=== PATIENT | male | born 1970 | race African-American/Black ===

== ENCOUNTER 2020-05-27 02:03 | Emergency (ER) | payer SELFPAY ==
[2020-05-27] MEDS ORDERED: ONDANSETRON 4 MG/2 ML VIAL ONE (02:54)
[2020-05-27] MEDS ORDERED: ASPIRIN 81 MG CHEWABLE TABLET ONE (02:54)
[2020-05-27 03:06] LABS: Protime INR 1.03
[2020-05-27 03:09] LABS: Absolute Lymphocytes (CBC) 1.4 K/uL (0.7-4.9); Basophils % 0.5 % (0-1.3); Hematocrit 43.1 % (39.6-49.0); Lymphocytes % 23.4 % (15.3-44.8); MPV 8.8 fL (7.6-11.3); RBC Red Blood Cell Count 4.84 M/uL (4.33-5.43)
[2020-05-27 03:24] LABS: Barbiturates NEGATIVE (NEGATIVE); Benzodiazepines NEGATIVE (NEGATIVE); Cocaine NEGATIVE (NEGATIVE); METHAMPHETAM POSITIVE (NEGATIVE); Methadone NEGATIVE (NEGATIVE); Opiates NEGATIVE (NEGATIVE); Phencyclidine NEGATIVE (NEGATIVE); THC Cannibis NEGATIVE (NEGATIVE)
[2020-05-27 03:25] LABS: ALT/SGPT 18 U/L (12-78); AST/SGOT 12 U/L (15-37); Albumin 3.8 g/dL (3.4-5.0); Alkaline Phosphatase 114 U/L (45-117); BUN Blood Urea Nitrogen 15 mg/dL (7-18); Bicarbonate 30 mmol/L (21-32); Bilirubin Direct < 0.1 mg/dL (0-0.2); Bilirubin Total 0.2 mg/dL (0.2-1.0); Glucose Level 98 mg/dL (74-106); Magnesium 2.4 mg/dL (1.8-2.4); NT PRO-BNP 46 pg/mL (<125); Protein, Total 8.1 g/dL (6.4-8.2); Sodium Level 139 mmol/L (136-145); Troponin (Emerg Dept Use Only) < 0.02 ng/mL (0.0-0.045)
[2020-05-27 03:39] LABS: Creatine Phosphokinase 184 U/L (39-308)
[2020-05-27] MEDS ORDERED: LORazepam 2 MG/ML VIAL ONE (03:43)
[2020-05-27] MEDS ORDERED: NA CHLORIDE 0.9% 1,000 ML ONE (03:43)
[2020-05-27 03:56] LABS: Urine Blood NEGATIVE (NEG); Urine Glucose NEGATIVE (NEG); Urine Protein TRACE (NEG); Urine Specific Gravity >1.030 (1.005-1.030)
[2020-05-27 04:55] LABS: Blood Morphology Comment NOT SEEN (NOT SEEN); Platelet Estimate ADEQ; White Blood Cell Scan OK (OK)
--- NOTE | 2020-05-27 06:14 | ER ---
Nurse's Notes [facility] Name: Danita Barbosa Age: 50 yrs Sex: Male : 1970 Arrival Date: 05/27/2020 Time: 02:06 Bed 6 Private MD: None, None Diagnosis: Chest pain, unspecified;Methamphetamine Abuse Presentation: 05/27 02:11 Acuity: LORENZO 3 sg 02:11 Chief complaint: Patient states: I have been having chest pain that began about a day sg ago, worsening tonight. 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 Denies any new injury or trauma at this time. States Chest pain is non radiating, described as sharp, denies N/V/D/Fever/Cough at this time. Coronavirus screen: Client denies travel out of the [place] in the last 14 days. At this time, the client does not indicate any symptoms associated with coronavirus-19. Ebola Screen: Patient negative for fever greater than or equal to 101.5 degrees Fahrenheit, and additional compatible Ebola Virus Disease symptoms Patient denies exposure to infectious person. Patient denies travel to an Ebola-affected area in the 21 days before illness onset. No symptoms or risks identified at this time. Initial Sepsis Screen: Does the patient meet any 2 criteria? HR > 90 bpm. No. Patient's initial sepsis screen is negative. Does the patient have a suspected source of infection? No. Patient's initial sepsis screen is negative. Risk Assessment: Do you want to hurt yourself or someone else? Patient reports no desire to harm self or others. Onset of symptoms was May 27, 2020. Care prior to arrival: None. Transition of care: patient was not received from another setting of care. 02:11 Method Of Arrival: Ambulatory sg Historical: - Allergies: 02:19 No Known Allergies; sg - Home Meds: 02:19 None [Active]; sg - PMHx: 02:19 None; sg - PSHx: 02:19 GI "several years ago"; sg - Immunization history:: Adult Immunizations not up to date. - Social history:: Smoking status: Patient reports the use of cigarette tobacco products, smokes one pack cigarettes per day. Patient uses alcohol, on a daily basis. Patient/guardian denies using street drugs, IV drugs. Screenin:46 Abuse screen: Denies threats or abuse. Denies injuries from another. Nutritional screening: No deficits noted. Tuberculosis screening: No symptoms or risk factors identified. Fall Risk None identified. Assessment: 02:45 General: Appears in no apparent distress. Behavior is calm, cooperative, appropriate wh for age. Pain: Complains of pain in chest Pain does not radiate. Pain currently is 5 out of 10 on a pain scale. Quality of pain is described as sharp, Pain began 2-3 days ago. Is episodic. Neuro: Level of Consciousness is awake, alert, obeys commands, Oriented to person, place, time, situation, Appropriate for age. Cardiovascular: Reports chest pain, Heart tones S1 S2 Rhythm is sinus tachycardia. Respiratory: Airway is patent Respiratory effort is even, unlabored, Respiratory pattern is regular, symmetrical, Breath sounds are clear bilaterally. GI: Abdomen is flat, non-distended. : No signs and/or symptoms were reported regarding the genitourinary system. EENT: No signs and/or symptoms were reported regarding the EENT system. Derm: Skin is intact, is healthy with good turgor, Skin is pink, warm \\T\\ dry. normal. Musculoskeletal: Circulation, motion, and sensation intact. 04:00 Reassessment: Patient appears in no apparent distress at this time. No changes from previously documented assessment. Patient and/or family updated on plan of care and expected duration. Pain level reassessed. Patient is alert, oriented x 3, equal unlabored respirations, skin warm/dry/pink. 05:15 Reassessment: Patient appears in no apparent distress at this time. Patient and/or family updated on plan of care and expected duration. Pain level reassessed. Patient is alert, oriented x 3, equal unlabored respirations, skin warm/dry/pink. 06:20 Reassessment: Patient appears in no apparent distress at this time. Patient and/or family updated on plan of care and expected duration. Pain level reassessed. Patient is alert, oriented x 3, equal unlabored respirations, skin warm/dry/pink. Vital Signs: 02:11 BP 141 / 102 LA Sitting (auto/reg); Pulse 100; Resp 18; Temp 97.7; Pulse Ox 100% on sg R/A; Weight 99.79 kg; Height 6 ft. 1 in. (185.42 cm); Pain 10/10; 04:00 BP 129 / 65; Pulse 84; Resp 18; Pulse Ox 99% on R/A; wh 05:15 BP 139 / 101; Pulse 81; Resp 18; Pulse Ox 95% on R/A; wh 06:15 BP 135 / 99; Pulse 83; Resp 18; Pulse Ox 98% ; 02:11 Body Mass Index 29.03 (99.79 kg, 185.42 cm) ED Course: 02:06 Patient arrived in ED. cl3 02:10 Dez Farias MD is Attending Physician. 7 02:11 Triage completed. sg 02:11 Arm band placed on. 02:20 None, None is Private Physician. 02:30 Inserted saline lock: 20 gauge in right antecubital area, using aseptic technique. wh Blood collected. Patient maintains SpO2 saturation greater than 95% on room air. 02:35 Ton So is Primary Nurse. 02:47 Patient has correct armband on for positive identification. Placed in gown. Bed in low wh position. Call light in reach. Side rails up X 1. 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 Pulse ox on. NIBP on. 03:13 XRAY Chest (1 view) In Process Unspecified. EDMS 03:13 Knee Left 3 View XRAY In Process Unspecified. EDMS 06:13 Scar Lerma MD is Referral Physician. [facility] 06:20 No provider procedures requiring assistance completed. IV discontinued, intact, wh bleeding controlled, No redness/swelling at site. Administered Medications: 02:43 Drug: Zofran (Ondansetron) 4 mg Route: IVP; Site: right antecubital; 02:58 Follow up: Response: No adverse reaction; Nausea is decreased 02:43 Drug: Aspirin Chewable Tablet 324 mg Route: PO; 02:59 Follow up: Response: No adverse reaction 03:34 Drug: Ativan 1 mg Route: IVP; Site: right antecubital; 05:27 Follow up: Response: No adverse reaction; RASS: Alert and Calm (0) 03:34 Drug: NS 0.9% 1000 ml Route: IV; Rate: 1 bolus; Site: right antecubital; 05:27 Follow up: Response: No adverse reaction; IV Status: Completed infusion Outcome: 06:13 Discharge ordered by . mh7 06:21 Discharged to home ambulatory. 06:21 Condition: stable 06:21 Discharge instructions given to patient, Instructed on discharge instructions, follow up and referral plans. POC Demonstrated understanding of instructions, follow-up care, POC 06:21 Patient left the ED. Signatures: Dispatcher [employer] Dominic Hopson RN RN sg Habalo, Winsy Maryjane Hernandez 3 Dez Farias MD MD mh7
--- NOTE | 2020-05-27 06:14 | EDPHYS ---
Physician Documentation [facility] Name: Danita Barbosa Age: 50 yrs Sex: Male : 1970 Arrival Date: 05/27/2020 Time: 02:06 Bed 6 Private MD: None, None ED Physician Dez Farias HPI: 05/27 02:55 This 50 yrs old Black Male presents to ER via Ambulatory with complaints of Chest Pain, mh7 Knee Pain - Left. 02:55 The patient or guardian reports chest pain that is located primarily in the anterior mh7 chest wall, bilaterally. Onset: 1 week(s) ago, and became worse 3 day(s) ago. The pain does not radiate. 02:56 Associated signs and symptoms: Pertinent positives: nausea, left anterior knee pain, mh7 Pertinent negatives: abdominal pain, cough, diaphoresis, dizziness, headache, lower extremity swelling, lightheadedness, near syncope, palpitations, recent travel, shortness of breath, syncope, vomiting. The chest pain is described as sharp. Duration: The patient or guardian reports multiple episodes, that are intermittent, that wax and wane. Modifying factors: The symptoms are alleviated by nothing. the symptoms are aggravated by nothing. Severity of pain: At its worst the pain was moderate yesterday, in the emergency department the pain has improved moderately. Patient reports chest pain for one week that worsened three days ago. Also complains of pain to his left anterior knee that he has had in the past but began again 2 days ago. He admits to drinking alcohol. He denies any fever, cough, abdominal pain, recent travel, or sick contacts.. Historical: - Allergies: 02:19 No Known Allergies; sg - Home Meds: 02:19 None [Active]; sg - PMHx: 02:19 None; sg - PSHx: 02:19 GI "several years ago"; sg - Immunization history:: Adult Immunizations not up to date. - Social history:: Smoking status: Patient reports the use of cigarette tobacco products, smokes one pack cigarettes per day. Patient uses alcohol, on a daily basis. Patient/guardian denies using street drugs, IV drugs. ROS: 02:56 Constitutional: Negative for fever, chills, and weight loss, Eyes: Negative for injury, mh7 pain, redness, and discharge, ENT: Negative for injury, pain, and discharge, Neck: Negative for injury, pain, and swelling, Respiratory: Negative for shortness of breath, cough, wheezing, and pleuritic chest pain, Back: Negative for injury and pain, : Negative for injury, bleeding, discharge, and swelling, Skin: Negative for injury, rash, and discoloration, Neuro: Negative for headache, weakness, numbness, tingling, and seizure, Psych: Negative for depression, anxiety, suicide ideation, homicidal ideation, and hallucinations, Allergy/Immunology: Negative for hives, rash, and allergies, Endocrine: Negative for neck swelling, polydipsia, polyuria, polyphagia, and marked weight changes, Hematologic/Lymphatic: Negative for swollen nodes, abnormal bleeding, and unusual bruising. Exam: 02:56 Head/Face: Normocephalic, atraumatic. Eyes: Pupils equal round and reactive to light, mh7 extra-ocular motions intact. Lids and lashes normal. Conjunctiva and sclera are non-icteric and not injected. Cornea within normal limits. Periorbital areas with no swelling, redness, or edema. Neck: Trachea midline, no thyromegaly or masses palpated, and no cervical lymphadenopathy. Supple, full range of motion without nuchal rigidity, or vertebral point tenderness. No Meningismus. Chest/axilla: Normal chest wall appearance and motion. Nontender with no deformity. No lesions are appreciated. 02:56 Respiratory: Lungs have equal breath sounds bilaterally, clear to auscultation and percussion. No rales, rhonchi or wheezes noted. No increased work of breathing, no retractions or nasal flaring. Abdomen/GI: Soft, non-tender, with normal bowel sounds. No distension or tympany. No guarding or rebound. No evidence of tenderness throughout. Back: No spinal tenderness. No costovertebral tenderness. Full range of motion. Skin: Warm, dry with normal turgor. Normal color with no rashes, no lesions, and no evidence of cellulitis. 02:56 Neuro: Awake and alert, GCS 15, oriented to person, place, time, and situation. Cranial nerves II-XII grossly intact. Motor strength 5/5 in all extremities. Sensory grossly intact. Cerebellar exam normal. Normal gait. 02:56 Constitutional: The patient appears in no acute distress, alert, awake, anxious. 02:56 Cardiovascular: Rate: tachycardic, Rhythm: regular, Pulses: no pulse deficits are appreciated, Heart sounds: normal, normal S1and S2, Edema: is not appreciated, JVD: is not appreciated. 02:56 Musculoskeletal/extremity: Extremities: noted in the left anterior knee: pain, tenderness, mild, ROM: intact in all extremities, Circulation is intact in all extremities. Pulses: are normal with no appreciated deficits, Perfusion: the patient is normally perfused throughout, Perfusion: the extremity is normally perfused throughout, Calf tenderness, is absent, Edema, is not appreciated, Sensation intact. Compartment Syndrome exam of affected extremity: is normal. no numbness, no tingling, no sensation deficit, no palor, no weak pulses, Joints: the left knee displays tenderness, mild, Weight bearing: Tendon exam: specific tendon testing normal through active and passive range of motion DVT Exam: no pain, no swelling, no tenderness, negative Homans' sign noted on exam, no appreciated bluish discoloration, no erythema, no increased warmth, Calves: are non-tender, have equal circumference. 02:56 Psych: Behavior/mood is cooperative, anxious, Affect is animated, Oriented to person, place, time, Patient has no thoughts/intents to harm self or others. Judgement / Insight is normal. Memory is normal. Delusions/hallucinations are not present. 06:19 ECG was reviewed by the Attending Physician. [facility] Vital Signs: 02:11 BP 141 / 102 LA Sitting (auto/reg); Pulse 100; Resp 18; Temp 97.7; Pulse Ox 100% on sg R/A; Weight 99.79 kg; Height 6 ft. 1 in. (185.42 cm); Pain 10/10; 04:00 BP 129 / 65; Pulse 84; Resp 18; Pulse Ox 99% on R/A; wh 05:15 BP 139 / 101; Pulse 81; Resp 18; Pulse Ox 95% on R/A; wh 06:15 BP 135 / 99; Pulse 83; Resp 18; Pulse Ox 98% ; wh 02:11 Body Mass Index 29.03 (99.79 kg, 185.42 cm) MDM: 02:34 Patient medically screened. [facility] 06:10 Differential diagnosis: acute myocardial infarction, acute pericarditis, anxiety, [facility] coronary artery disease chest wall pain, congestive heart failure costochondritis, myocarditis, pericarditis, pneumonia, pneumothorax, Substance Abuse. HEART Score: History: Slightly Suspicious (0), ECG: Non specific repolarization disturbance / LBTB / PM (1), Age: > 45 and < 65 years (1), Risk Factors: No Risk Factors Known (0), Troponin: < or = 1 x Normal Limit (0), Total Score = 2. The patient was given aspirin in the Emergency Department. Data reviewed: vital signs, nurses notes, lab test result(s), cardiac enzymes, CBC, drug level(s), alcohol, electrolytes, urinalysis, urine drug screen, EKG, radiologic studies, plain films. Data interpreted: Pulse oximetry: on room air is 97 %. Interpretation: normal. Counseling: I had a detailed discussion with the patient and/or guardian regarding: the historical points, exam findings, and any diagnostic results supporting the discharge/admit diagnosis, the presence of at least one elevated blood pressure reading (>120/80) during this emergency department visit, lab results, radiology results, the need for outpatient follow up, to return to the emergency department if symptoms worsen or persist or if there are any questions or concerns that arise at home. Response to treatment: the patient's symptoms have resolved after treatment, the patient's blood pressure is in an acceptable range, mental status has returned to baseline, the patient no longer shows bradycardia, the patient is not short of breath, the patient is not tachycardic, the patient's pain is gone, the patient's temperature has normalized. 05/27 02:34 Order name: Basic Metabolic Panel; Complete Time: 03:43 05/27 02:34 Order name: CBC with Diff; Complete Time: 05:40 mh7 05/27 02:34 Order name: LFT's; Complete Time: 03:43 05/27 02:34 Order name: Magnesium; Complete Time: 03:43 05/27 02:34 Order name: NT PRO-BNP; Complete Time: 03:43 05/27 02:34 Order name: PT-INR; Complete Time: 03:28 7 05/27 02:34 Order name: Troponin (emerg Dept Use Only); Complete Time: 03:43 05/27 02:34 Order name: ETOH Level; Complete Time: 03:28 mh7 05/27 02:34 Order name: UDS; Complete Time: 03:28 7 05/27 03:12 Order name: Urine Dipstick--Ancillary (enter results); Complete Time: 03:59 mw2 05/27 03:26 Order name: CBC Smear Scan; Complete Time: 05:40 EDMS 05/27 03:28 Order name: Creatine Phosphokinase; Complete Time: 03:43 EDMS 05/27 04:44 Order name: Troponin (emerg Dept Use Only); Complete Time: 06:05 rv 05/27 02:34 Order name: XRAY Chest (1 view) [facility] 05/27 02:34 Order name: EKG; Complete Time: 02:36 [facility] 05/27 02:34 Order name: Cardiac monitoring; Complete Time: 02:36 [facility] 05/27 02:34 Order name: EKG - Nurse/Tech; Complete Time: 02:36 [facility] 05/27 02:34 Order name: IV Saline Lock; Complete Time: 02:36 [facility] 05/27 02:34 Order name: Labs collected and sent; Complete Time: 02:36 [facility] 05/27 02:34 Order name: O2 Per Protocol; Complete Time: 02:36 [facility] 05/27 02:34 Order name: O2 Sat Monitoring; Complete Time: 02:36 [facility] 05/27 02:34 Order name: Urine Dipstick-Ancillary (obtain specimen); Complete Time: 02:58 [facility] 05/27 02:35 Order name: Knee Left 3 View XRAY 7 EC:19 Rate is 116 beats/min. Rhythm is regular, Sinus tachycardia. QRS [place] is Normal. [place] mh7 interval is normal. QRS interval is normal. QT interval is normal. Q waves are Present in lead III. T waves are Normal. No ST changes noted. Clinical impression: Sinus tachycardia. Administered Medications: 02:43 Drug: Zofran (Ondansetron) 4 mg Route: IVP; Site: right antecubital; 02:58 Follow up: Response: No adverse reaction; Nausea is decreased wh 02:43 Drug: Aspirin Chewable Tablet 324 mg Route: PO; 02:59 Follow up: Response: No adverse reaction 03:34 Drug: Ativan 1 mg Route: IVP; Site: right antecubital; 05:27 Follow up: Response: No adverse reaction; RASS: Alert and Calm (0) 03:34 Drug: NS 0.9% 1000 ml Route: IV; Rate: 1 bolus; Site: right antecubital; 05:27 Follow up: Response: No adverse reaction; IV Status: Completed infusion Disposition: 05/27/20 06:13 Discharged to Home. Impression: Chest pain, unspecified, Methamphetamine Abuse. - Condition is Stable. - Discharge Instructions: Nonspecific Chest Pain, [id number], Hypertension, [id number], Stimulant Use Disorder-Methamphetamines. - Medication Reconciliation Form, Thank You Letter, Antibiotic Education, Prescription Opioid Use form. - Follow up: Private Physician; When: 1 - 2 days; Reason: Worsening of condition, Recheck today's complaints, Continuance of care, Re-evaluation by your physician. Follow up: Scar Lerma MD; When: 1 - 2 days; Reason: Worsening of condition, Recheck today's complaints. - Problem is an ongoing problem. - Symptoms have improved. Signatures: Dispatcher [employer] [facility] Dominic Blandon RN RN sg [place], Winsy Dez Farias MD MD mh7 Corrections: (The following items were deleted from the chart) 03:44 03:27 CREATINE PHOSPHOKINASE+C.LAB.BRZ ordered. [facility] 06:21 06:13 05/27/2020 06:13 Discharged to Home. Impression: Chest pain, unspecified; Methamphetamine Abuse. Condition is Stable. Forms are Medication Reconciliation Form, Thank You Letter, Antibiotic Education, Prescription Opioid Use. Follow up: Private Physician; When: 1 - 2 days; Reason: Worsening of condition, Recheck today's complaints, Continuance of care, Re-evaluation by your physician. Follow up: Scar Lerma; When: 1 - 2 days; Reason: Worsening of condition, Recheck today's complaints. Problem is an ongoing problem. Symptoms have improved. mh7
[2020-05-27 06:56] VITALS: TEMP 97.7
[2020-05-27 07:05] VITALS: BP 135/99; O2SAT 98
--- NOTE | 2020-05-27 11:12 | RAD REPORT ---
EXAM DESCRIPTION: XR Knee Left 3 View CLINICAL HISTORY: PAIN TECHNIQUE: Three views of the left knee are submitted. COMPARISON: None available for comparison FINDINGS: Bones: No acute fracture. Joints: Mild tricompartmental degenerative changes. No dislocation. No appreciable joint effusion. Soft tissues: Unremarkable IMPRESSION: No acute abnormality. Electronically signed by: Madhavi Hawk MD 05/27/2020 3:24 AM CDT Due to temporary technical issues with the PACS/Fluency reporting system, reports are being signed by the in house radiologist without review as a courtesy to ensure prompt reporting. The interpreting r adiologist is fully responsible for the content of the report.
--- NOTE | 2020-05-27 11:16 | RAD REPORT ---
EXAM DESCRIPTION: XR Chest 1 View CLINICAL HISTORY: CHEST PAIN TECHNIQUE: Single frontal view of the chest is submitted. COMPARISON: None available for comparison FINDINGS: Heart: The cardiothoracic silhouette is within normal limits. Lungs: No focal consolidation. Mediastinum: Unremarkable Pleura: No appreciable effusion. No pneumothorax. Bones: Intact Upper abdomen: Unremarkable IMPRESSION: No acute disease. Electronically signed by: Madhavi Hawk MD 05/27/2020 3:25 AM CDT Due to temporary technical issues with the PACS/Fluency reporting system, reports are being signed by the in house radiologist without review as a courtesy to ensure prompt reporting. The interpreting r adiologist is fully responsible for the content of the report.
== END 2020-05-27 06:21 | disposition home or self-care (01) ==
LOC: ER 02:03
DX: F15.10 Other stimulant abuse, uncomplicated (principal); M25.562 Pain in left knee; F17.210 Nicotine dependence, cigarettes, uncomplicated
CPT/HCPCS: 36415; 71045; 80048; 80076; 80307; 80320; 81003; 82550; 83735; 83880; 84484; 85025; 85610; 93005; 96361; 96374; 96375; 99285; J2405; J7030

== ENCOUNTER 2020-05-28 14:31 | Emergency (ER) | payer SELFPAY ==
[2020-05-28 15:31] LABS: Absolute Lymphocytes (CBC) 1.7 K/uL (0.7-4.9); Basophils % 0.7 % (0-1.3); Hematocrit 41.9 % (39.6-49.0); Lymphocytes % 30.5 % (15.3-44.8); MPV 8.5 fL (7.6-11.3); RBC Red Blood Cell Count 4.65 M/uL (4.33-5.43)
--- NOTE | 2020-05-28 15:39 | RAD REPORT ---
EXAM DESCRIPTION: RAD - Chest Single View - 05/28/2020 3:31 pm CLINICAL HISTORY: CHEST PAIN Chest pain. COMPARISON: Chest Single View dated 05/27/2020 FINDINGS: Portable technique limits examination quality. The lungs are grossly clear. The heart is normal in size. No displaced fractures. IMPRESSION: No acute intrathoracic process suspected.
[2020-05-28 16:03] LABS: ALT/SGPT 14 U/L (12-78); Albumin 3.5 g/dL (3.4-5.0); Alkaline Phosphatase 103 U/L (45-117); BUN Blood Urea Nitrogen 13 mg/dL (7-18); Bicarbonate 28 mmol/L (21-32); Bilirubin Direct < 0.1 mg/dL (0-0.2); Bilirubin Total 0.4 mg/dL (0.2-1.0); Glucose Level 82 mg/dL (74-106); NT PRO-BNP 53 pg/mL (<125); Protein, Total 7.4 g/dL (6.4-8.2); Sodium Level 137 mmol/L (136-145); Troponin (Emerg Dept Use Only) < 0.02 ng/mL (0.0-0.045)
[2020-05-28 16:18] LABS: AST/SGOT 13 U/L (15-37); Magnesium 2.5 mg/dL (1.8-2.4); Potassium 4.2 mmol/L (3.5-5.1)
--- NOTE | 2020-05-28 16:25 | EDPHYS ---
Physician Documentation [facility] Name: Danita Barbosa Age: 50 yrs Sex: Male : 1970 Arrival Date: 05/28/2020 Time: 14:33 Bed 8 Private MD: ED Physician Kennedy Reynolds HPI: 05/28 14:49 This 50 yrs old Black Male presents to ER via Unassigned with complaints of CHEST PAIN marcie AND SOB. 14:50 The patient has shortness of breath at rest, with light activity. Onset: The marcie symptoms/episode began/occurred today. Duration: The symptoms are continuous, and are unchanged since they started. The patient's shortness of breath has no apparent modifying factors. The patient or guardian reports chest pain that is located primarily in the anterior chest wall, bilaterally. Onset: just prior to arrival. The pain does not radiate. Associated signs and symptoms: Pertinent positives: chest pain, non-productive cough. Severity of symptoms: At their worst the symptoms were mild moderate in the emergency department the symptoms are unchanged. Historical: - Allergies: 15: No Known Allergies; iw - Home Meds: 15:01 None [Active]; iw - PMHx: 15:01 None; iw - PSHx: 15:01 GI "several years ago"; iw - Immunization history:: Adult Immunizations not up to date. - Social history:: Smoking status: Patient reports the use of cigarette tobacco products, smokes one-half pack cigarettes per day. - Family history:: not pertinent. ROS: 14:50 Constitutional: Negative for fever, chills, and weight loss, Eyes: Negative for injury, marcie pain, redness, and discharge, ENT: Negative for injury, pain, and discharge, Neck: Negative for injury, pain, and swelling, Respiratory: Negative for shortness of breath, cough, wheezing, and pleuritic chest pain, Abdomen/GI: Negative for abdominal pain, nausea, vomiting, diarrhea, and constipation, Back: Negative for injury and pain, : Negative for injury, bleeding, discharge, and swelling, MS/Extremity: Negative for injury and deformity, Skin: Negative for injury, rash, and discoloration, Neuro: Negative for headache, weakness, numbness, tingling, and seizure, Psych: Negative for depression, anxiety, suicide ideation, homicidal ideation, and hallucinations, Allergy/Immunology: Negative for hives, rash, and allergies, Endocrine: Negative for neck swelling, polydipsia, polyuria, polyphagia, and marked weight changes, Hematologic/Lymphatic: Negative for swollen nodes, abnormal bleeding, and unusual bruising. 14:50 Cardiovascular: Positive for chest pain. Exam: 14:50 Constitutional: This is a well developed, well nourished patient who is awake, alert, marcie and in no acute distress. Head/Face: Normocephalic, atraumatic. Eyes: Pupils equal round and reactive to light, extra-ocular motions intact. Lids and lashes normal. Conjunctiva and sclera are non-icteric and not injected. Cornea within normal limits. Periorbital areas with no swelling, redness, or edema. ENT: Nares patent. No nasal discharge, no septal abnormalities noted. Tympanic membranes are normal and external auditory canals are clear. Oropharynx with no redness, swelling, or masses, exudates, or evidence of obstruction, uvula midline. Mucous membranes moist. Neck: Trachea midline, no thyromegaly or masses palpated, and no cervical lymphadenopathy. Supple, full range of motion without nuchal rigidity, or vertebral point tenderness. No Meningismus. Chest/axilla: Normal chest wall appearance and motion. Nontender with no deformity. No lesions are appreciated. Respiratory: Lungs have equal breath sounds bilaterally, clear to auscultation and percussion. No rales, rhonchi or wheezes noted. No increased work of breathing, no retractions or nasal flaring. Abdomen/GI: Soft, non-tender, with normal bowel sounds. No distension or tympany. No guarding or rebound. No evidence of tenderness throughout. Back: No spinal tenderness. No costovertebral tenderness. Full range of motion. Male : Normal genitalia with no discharge or lesions. Skin: Warm, dry with normal turgor. Normal color with no rashes, no lesions, and no evidence of cellulitis. MS/ Extremity: Pulses equal, no cyanosis. Neurovascular intact. Full, normal range of motion. Neuro: Awake and alert, GCS 15, oriented to person, place, time, and situation. Cranial nerves II-XII grossly intact. Motor strength 5/5 in all extremities. Sensory grossly intact. Cerebellar exam normal. Normal gait. Psych: Awake, alert, with orientation to person, place and time. Behavior, mood, and affect are within normal limits. 14:50 Cardiovascular: Rate: normal, Rhythm: regular, Pulses: no pulse deficits are appreciated, Pulses are 4+ in bilateral radial, brachial, femoral, popliteal, posterior tibial and and dorsalis pedis arteries.. Heart sounds: normal, Edema: is not appreciated, JVD: is not appreciated. Vital Signs: 15:03 BP 134 / 97; Pulse 85; Resp 16; Temp 98.8; Pulse Ox 100% on R/A; iw MDM: 14:37 Patient medically screened. marcie 14:50 Differential diagnosis: Anemia Anxiety Reaction CHF exacerbation, Chronic Obstructive marcie Pulmonary Disease acute myocardial infarction, acute pericarditis, anxiety, coronary artery disease cholecystitis, Cholelithiasis gastritis, hiatal hernia, pancreatitis, peptic ulcer disease, pleurisy, pneumothorax, pulmonary embolus, stable angina, unstable angina, Myocardial Infarction Pneumothorax pulmonary edema, Pulmonary Embolism reactive airway disease. Antibiotic administration: Not indicated. HEART Score: History: Slightly Suspicious (0), ECG: Normal (0), Age: > 45 and < 65 years (1), Risk Factors: 1 or 2 risk factors (1), [Hypertension] [Active Smoker]. The patient was given aspirin in the Emergency Department. The patient's Wells Deep Vein Thrombosis Score was calculated as follows: Total Score: 0. This patient was found to be at low risk for a deep vein thrombosis by using the Well's assessment criteria Total Score: 0-2 Pts- Low Risk. The patient's pulmonary embolism risk score was calculated as follows: Total Score: 0-2 points. This patient was found to be at low risk for a pulmonary embolism by using the Well's assessment criteria Total Score: 0-2 points. This patient was found to be at low risk for a pulmonary embolism by using the Well's assessment criteria. MANI Risk Score: TOTAL SCORE = 0. Immunization status:. Data reviewed: vital signs, nurses notes, lab test result(s), EKG, radiologic studies, plain films. Data interpreted: clinical lab specialist: rate is 62 beats/min, rhythm is regular, Pulse oximetry: on room air is 95 %. Test interpretation: by ED physician or midlevel provider: ECG, plain radiologic studies. 16:49 ED course: EXPLAINED RISK OF INCOMPLETE WORK UP, RISK OF CARDIAC , MISSED PE WITH marcie SUBSEQUENT , PT UNDERSTANDS AND SIGNS OUT AMA. 05/28 14:39 Order name: Basic Metabolic Panel [facility] 05/28 14:39 Order name: CBC with Diff; Complete Time: 15:37 [facility] 05/28 14:39 Order name: LFT's [facility] 05/28 14:39 Order name: Magnesium [facility] 05/28 14:39 Order name: NT PRO-BNP [facility] 05/28 14:39 Order name: Troponin (emerg Dept Use Only) [facility] 05/28 14:39 Order name: XRAY Chest (1 view); Complete Time: 16:14 [facility] 05/28 14:39 Order name: EKG; Complete Time: 14:40 [facility] 05/28 14:50 Order name: COVID-19 [facility] 05/28 14:39 Order name: Cardiac monitoring; Complete Time: 15:27 [facility] 05/28 14:39 Order name: EKG - Nurse/Tech; Complete Time: 15:27 [facility] 05/28 14:39 Order name: IV Saline Lock; Complete Time: 15:27 [facility] 05/28 14:39 Order name: Labs collected and sent; Complete Time: 15:27 [facility] 05/28 14:39 Order name: O2 Per Protocol; Complete Time: 15:27 [facility] 05/28 14:39 Order name: O2 Sat Monitoring; Complete Time: 15:26 [facility] Administered Medications: No medications were administered Disposition: 05/28/20 16:24 Patient has left against medical advice. - Patients states they are going to Home. - Condition is Undetermined. Signatures: Dispatcher [employer] Kennedy Ramos MD MD cha Williams, Irene, RN Sepideh Mcmahon RN RN tw2
--- NOTE | 2020-05-28 16:25 | ER ---
Nurse's Notes [facility] Name: Danita Barbosa Age: 50 yrs Sex: Male : 1970 Arrival Date: 05/28/2020 Time: 14:33 Bed 8 Private MD: Diagnosis: Presentation: 05/28 14:40 Chief complaint: Chief complaint: Patient states: isabel chest pain X 1 week, was seen iw here a couple days ago and had a work up, not sent home with any meds. 14:40 Coronavirus screen: At this time, the client does not indicate any symptoms associated iw with coronavirus-19. Ebola Screen: Patient negative for fever greater than or equal to 101.5 degrees Fahrenheit, and additional compatible Ebola Virus Disease symptoms Patient denies exposure to infectious person. Patient denies travel to an Ebola-affected area in the 21 days before illness onset. No symptoms or risks identified at this time. Initial Sepsis Screen: Does the patient meet any 2 criteria? No. Patient's initial sepsis screen is negative. Does the patient have a suspected source of infection? No. Patient's initial sepsis screen is negative. Risk Assessment: Do you want to hurt yourself or someone else? Patient reports no desire to harm self or others. Onset of symptoms was May 21, 2020. 14:40 Method Of Arrival: EMS: [facility] 14:40 Acuity: LORENZO 3 iw Historical: - Allergies: 15:01 No Known Allergies; iw - Home Meds: 15:01 None [Active]; iw - PMHx: 15:01 None; iw - PSHx: 15:01 GI "several years ago"; iw - Immunization history:: Adult Immunizations not up to date. - Social history:: Smoking status: Patient reports the use of cigarette tobacco products, smokes one-half pack cigarettes per day. - Family history:: not pertinent. Screenin:15 Abuse screen: Denies threats or abuse. Denies injuries from another. Nutritional jl7 screening: No deficits noted. Tuberculosis screening: No symptoms or risk factors identified. Fall Risk IV access (20 points). Total Perez Fall Scale indicates No Risk (0-24 pts). Assessment: 15:15 General: Appears in no apparent distress. uncomfortable, Behavior is cooperative, jl7 anxious. Pain: Complains of pain in chest Pain does not radiate. Pain currently is 8 out of 10 on a pain scale. Quality of pain is described as sharp, Pain began 30 min ago. Is continuous. Neuro: Level of Consciousness is awake, alert, obeys commands, Oriented to person, place, time, situation. Cardiovascular: Patient's skin is warm and dry. Respiratory: Airway is patent Respiratory effort is even, unlabored, Respiratory pattern is regular, symmetrical. Derm: Skin is dry, Skin is normal, Skin temperature is warm. 15:33 Reassessment: IV needed at this time, notified charge nurse of need for midline as pt tw2 has had 5 iv tries. 15:44 Reassessment: pt signed AMA form, states "i just dont want to be poked anymore, it just tw2 hurts too bad", provider notified. 15:54 Reassessment: pt counseled for need of blood work repeititively states "no man it hurts tw2 too bad, i dont want anymore pokes", provider notified. pt states "i will just wait for the results of the blood work sent". 16:08 Reassessment: pt refused Covid swab at this time. tw2 16:15 Reassessment: provider at bedside at this time, pt still not agreeable to further tw2 testing or iv attempts. Vital Signs: 15:03 BP 134 / 97; Pulse 85; Resp 16; Temp 98.8; Pulse Ox 100% on R/A; iw ED Course: 14:33 Patient arrived in ED. jl7 14:37 Kennedy Reynolds MD is Attending Physician. [facility] 14:54 Triage completed. iw 14:54 Arm band placed on. iw 15:00 EKG done, by ED staff, reviewed by Kennedy Reynolds MD. Patient maintains SpO2 saturation jl7 greater than 95% on room air. 15:03 Car Mack, ROSELYN is Primary Nurse. jl7 15:15 Patient has correct armband on for positive identification. Bed in low position. Call jl7 light in reach. Side rails up X 1. satellite project site monitor on. Pulse ox on. NIBP on. Warm blanket given. 15:28 Primary Nurse role handed off by Car Mack, RN tw2 15:28 Sepideh Mims RN is Primary Nurse. tw2 15:31 XRAY Chest (1 view) In Process Unspecified. EDMS Administered Medications: No medications were administered Outcome: 16:24 AMA AMA form signed tw2 16:24 unknown 16:24 Patient left the ED. tw2 Signatures: Dispatcher [employer] EDMS Kennedy Reynolds MD MD cha Williams, Irene RN RN iw Sepideh Mims RN RN tw2 Car Mack RN RN jl7 Corrections: (The following items were deleted from the chart) 14:54 14:50 Chief complaint: josé miguel valdez
[2020-05-28 16:49] VITALS: BP 134/97; TEMP 98.8; O2SAT 100
== END 2020-05-28 16:24 | disposition left against medical advice (07) ==
LOC: ER 14:31
DX: R07.9 Chest pain, unspecified (principal); F17.210 Nicotine dependence, cigarettes, uncomplicated; Z53.29 Procedure and treatment not carried out because of patient's decision for other reasons
CPT/HCPCS: 36415; 71045; 80048; 80076; 82565; 83735; 83880; 84484; 85025; 93005; 99285